=== PATIENT | female | born 1980 | race Caucasian/White ===

== ENCOUNTER 2019-02-04 23:35 | Day surgery (SDC) | payer OTHER ==
[2019-02-05 00:24] VITALS: BP 122/58; TEMP 98.3; BMI 29.7
--- NOTE | 2019-02-05 00:53 | PDOC.FPROB ---
FMR OB H&P: HPI - History of Present Illness Chief Complaint: Decreased movement History of Present Illness: This is a 38 yo at 37.5 by 10.6 wk US c/w LMP who presents to L&D with a cc of decreased movement. She reports earlier today she reports decreased movement. She states she tried eating something sweet to try and stimulate her baby. She denies chest pain, SOB, vomiting, dizziness, or abdominal pain. She reports 4 contractions today, sporadic. She FMR OB H&P: Current - Care : 3 Para: 0 Gestational age: 37.5 Due date: 02/21/19 Dating Criteria: 10wk US c/w LMP - OB Labs Blood type: A RH: positive Antibody Screen: negative HIV: negative RPR: negative HepBsAg: negative Quad screen: negative Gonorrhea: negative Chlamydia: negative Pap Smear: Negative GBS: unknown Additional labs: Hep C positive, Genotype 2 - Additional Ultrasound Additional: 30.0 week US shows BPP 8/8 and anterior placenta. 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 OFFICER History: None - Surgical History Sx History: None - Social History Social History: History of drug use - Family History Family History: Noncontributory FMR OB H&P: Medications - Current Home Medications: Medication Instructions Recorded Confirmed Type Vitamin 1 tablet PO DAILY 02/05/19 02/05/19 History Ranitidine HCl [Acid Substance Abuse Clinician] 75 mg PO BID 02/05/19 02/05/19 History Allergies/Adverse Reactions: Allergies Allergy/AdvReac Type Severity Reaction Status Date / Time No Known Allergies Allergy Unverified 02/05/19 00:11 FMR OB H&P: ROS - Review of Systems General: denies: fever/chills, weight/appetite/sleep changes Eyes: denies: eye pain, vision changes ENT: denies: nasal congestion, rhinorrhea Cardiovascular: denies: chest pain, palpitation Gastrointestinal: denies: abdominal pain, indigestion, bright red blood Genitourinary (Female): reports: other (Possible LOF). denies: incontinence, dysuria, vaginal bleeding, vaginal pressure Musculoskeletal: denies: pain, stiffness Neurologic: denies: numbness, syncope Integumentary: denies: itching, rash Hematologic/Lymphatic: denies: prolonged or excessive bleeding Psychological: denies: depression, anxiety FMR OB H&P: Vital Signs - Maternal Vital signs: Vital Signs - First Documented Temp Pulse Resp BP Pulse Ox 98.3 F 84 18 122/58 L 98 02/05/19 00:09 02/05/19 00:09 02/05/19 00:09 02/05/19 00:09 02/05/19 00:09 - Heart Tones Baseline: 150 (Reactive NST) Variability: moderate Acceleration: present Deceleration: absent [place] contractions every: none FMR OB H&P: Physical Exam - Physical Exam General: NAD, awake, alert and oriented HEENT: normocephalic and atraumatic, PERRLA, EOMI, grossly normal vision, grossly normal hearing Neck: FROM, trachea midline Chest: non-tender to palpation Heart: RRR, normal S1/S2 General: CTAB, no respiratory distress, no wheezing Abdomen: soft, gravid, non-tender, bowel sound present Musculoskeletal: normal gait and station, pulses present Skin: capillary refill <2 seconds Lymphatic: no unusual bruising or bleeding Psychiatric: intact recent and remote memory FMR OB H&P: Results - Labs Lab results: Amnisure negative FMR OB H&P: A/P Disposition: This is a 38 yo at 37.5 by 10.6 wk US c/w LMP tIUP, concern for decreased FM -Resolved upon L&D -FHTs Cat 1 -Amnisure negative for fluid loss -Discharging pt home, return precautions given Hepatitis C -Plan for treatment by ALESSANDRO PABLO Discussion: Date/Time: 02/05/19 0050 This H&P was discussed with Dr. Avila who agree with the above documentation and plan. Signature: Markell Dunaway DO
--- NOTE | 2019-02-05 01:39 | PDOC.EVN ---
Event Note - Event Note Event Note: [facility] 0140 Triage H&P FULL H&P per resident note I have seen and evaluated the patiet at bedside. I have reviewed the case with the resident production specialist. CC: Decreased FM (now resolved) at 37.5 weeks... Patient is a 38 yo Living 0 with HX 27 week delivery and 20 week SAB, here with resolved decreased FM. Unsure if had a leak of fluid eatlier x1...now resolved. No V. Review of Systems: States HX Hep C, and has GI MD follow up Past med: hep C Ob HX: As per HPI Physiacl: VSS afebrile NAD Abd soft nt No gross evidence of LOF no VB CX deferred as no CTX Monitors: strip cat 1, no ctx Lab: Amnisure pending Assessment and plan: 1. Hep C 2. AMS 3. Decreased FM..now resolved, Cat 1 FHT 4. await test (do not suspect LOF by HX or exam at this point)
[2019-02-05 02:03] LABS: Amnisure Internal Control QC ACCEPTABLE (ACCEPTABLE); Amnisure Test No Membranes Rupture (No Rupture)
== END 2019-02-05 02:44 | disposition home or self-care (01) ==
LOC: L&D/OP 23:35
PROVIDERS: ATTEND Obstetrics & Gynecology
DX: O36.8130 Decreased fetal movements, third trimester, not applicable or unspecified (principal); O98.413 Viral hepatitis complicating pregnancy, third trimester; B19.20 Unspecified viral hepatitis C without hepatic coma; Z3A.37 37 weeks gestation of pregnancy; Z79.899 Other long term (current) drug therapy
CPT/HCPCS: 84112; 99283

== ENCOUNTER 2019-02-16 21:00 | Inpatient (IN) | payer OTHER ==
--- NOTE | 2019-02-16 21:20 | PDOC.FPROB ---
FMR OB H&P: HPI - History of Present Illness Chief Complaint: eIOL Indentification: 38 yo @ 39.2 by 10.6 wk sono History of Present Illness: 38 yo @ 39.2 wks by 10.6 wk sono presents for eIOL. Reports +FM, no VB, no abnormal discharge, no LOF. Denies contractions. Primary Care Physician: Kusum Wisdom FMR OB H&P: Current - Care : 3 Para: 0110 Gestational age: 39.2 Due date: 02/21/19 Dating Criteria: 10.6 wk sono - OB Labs Blood type: A RH: positive Antibody Screen: negative HIV: negative RPR: negative HepBsAg: negative Rubella: immune Quad screen: negative Urine drug screen: negative Gonorrhea: negative Chlamydia: negative Pap Smear: NILM, hpv neg 1 hour gtt: 125 GBS: negative H&H: 11.4/32.1, 12.1/34.0 Platelets: 227, 252 - First Trimester Ultrasound First trimester: anterior placenta FMR OB H&P: History - Past Medical History PMH: Hep C, patient will follow up with GI for tx after delivery Hx Meth abuse Depression - OB History OB History: 1st - 28-30 wk IUFD 2nd - 20 wk spontaneous On methamphetamine during both prior pregnancies - 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: +BV, s/p tx - Surgical History Sx History: none - Social History Social History: Hx meth abuse Current smoker, 1-2 cig/day No alcohol use Hx of incarceration - Family History Family History: adopted FMR OB H&P: Medications - Current Home Medications: Medication Instructions Recorded Confirmed Type Vitamin 1 tablet PO DAILY 02/05/19 02/16/19 History Allergies/Adverse Reactions: Allergies Allergy/AdvReac Type Severity Reaction Status Date / Time No Known Allergies Allergy Verified 02/16/19 21:43 FMR OB H&P: ROS - Review of Systems General: denies: fever/chills, weight/appetite/sleep changes Eyes: denies: eye pain, vision changes ENT: reports: nasal congestion, rhinorrhea, sore throat, other (Tooth pain, broken tooth. Plans to follow up after delivery.) Cardiovascular: denies: chest pain, palpitation Gastrointestinal: denies: abdominal pain, indigestion, nausea, vomiting, diarrhea, constipation, bright red blood Genitourinary (Female): reports: vaginal pressure. denies: dysuria, hematuria, vaginal discharge, vaginal pain, vaginal bleeding, contractions Neurologic: denies: numbness, weakness Integumentary: denies: rash, lesions Psychological: denies: depression, anxiety FMR OB H&P: Vital Signs - Maternal Vital signs: 121/69 BP P100 T 98.3 O2 98% on RA - Heart Tones Baseline: 140 Variability: moderate Acceleration: present Deceleration: absent Category: category 1 [place] contractions every: none FMR OB H&P: Physical Exam - Physical Exam General: NAD, awake, alert and oriented HEENT: normocephalic and atraumatic, PERRLA, MMM, conjunctiva clear, grossly normal hearing, oropharynx clear Neck: supple, no LAD Breast: symmetric Heart: RRR, normal S1/S2, other (trace pitting edema BLE) General: CTAB, no respiratory distress Abdomen: soft, gravid Musculoskeletal: pulses present, no misalignment/asymmetry, no atrophy Skin: no rash, good tugor, capillary refill <2 seconds Lymphatic: no unusual bruising or bleeding Psychiatric: intact recent and remote memory, normal mood and affect - Pelvic Exam Vulva: normal hair distribution SVE: /-2 @ 1015 Agarwal score: 9 Membranes: intact Presentation: OP FMR OB H&P: A/P - Problem List (1) Elective induction of labor planned Current Visit: Yes Status: Acute Code(s): [id number] - (2) Current Visit: Yes Status: Acute (3) Tobacco abuse Current Visit: Yes Status: Acute Code(s): Z72.0 - TOBACCO USE (4) Hx of intravenous drug use in remission Current Visit: Yes Status: Chronic Code(s): Z87.898 - PERSONAL HISTORY OF OTHER SPECIFIED CONDITIONS (5) Hepatitis C Current Visit: Yes Status: Acute Code(s): B19.20 - UNSPECIFIED VIRAL HEPATITIS C WITHOUT HEPATIC COMA Discussion: Date/Time: 02/16/192117 sIUP -SVE @ 2215: 380/-2, agarwal 9 -Bedside sono: vertex, OP -FHTs: baseline 140, +accels no decels, no cxns -GBS neg -Pt wants epidural, plans to breast feed -Start induction with cytotec, recheck in 4 hrs Hx drug use -UDS pending Current tobacco use -10 cig/day Hep C -to be treated outpt after delivery Addendum - Attending - Attending Attestation Date/Time: 02/16/19 6907 I personally evaluated the patient and discussed the management with Dr. Ken Wisdom I agree with the History, Examination, Assessment and Plan documented above with any addition or exceptions noted below- 38 yo female @39.2 weeks admitted for elective induction. Denies any ctx, LOF, VB (+) FM. POBHx significant for IUFD @ 20 weeks and 28 weeks. H/o methamphetamine use in past; no recent use. Afebrile VSS. SVE 3/80%/-2/mid/soft (Agarwal=9). FHTs 140s/mod variability/(+) accel/no decel; Category 1. [place]- occ ctx A/P: 1) IUP@39.2 weels for elective induction Cervix favorable- will start pitocin.
[2019-02-16] MEDS ORDERED: NS / Oxytocin 40 units/1000ml 1,000 ML IV PRN (22:48)
[2019-02-16] MEDS ORDERED: Promethazine HCl 25 MG/ML VIAL IM PRN (22:48)
[2019-02-16] MEDS ORDERED: Ibuprofen 800 MG TAB PO PRN ×2 (22:48→23:04)
[2019-02-16] MEDS ORDERED: Ondansetron PF 4 MG/2 ML Vial IVP PRN (22:48)
[2019-02-16] MEDS ORDERED: Lidocaine 1% (PF) 30 ML VIAL SC PRN (22:48)
[2019-02-16] MEDS ORDERED: Butorphanol Tartrate 1 MG/ML VIAL SLOW IVP PRN (22:48)
[2019-02-16] MEDS ORDERED: Acetaminophen 500 MG TAB PO PRN (22:48)
[2019-02-16] MEDS ORDERED: NS w/ Oxytocin 10 units 500 ML IV SCH (22:48)
[2019-02-16 23:00] LABS: Hemoglobin 12.5 g/dL (12.0-16.0); Mean Corpuscular HGB CONC 34.5 g/dL (32.0-36.0); Mean Corpuscular Hemoglobin 33.7 pg (27.0-31.0); Mean Corpuscular Volume 97.8 fL (78.0-98.0); Mean Platelet Volume 9.2 fL (7.4-10.4); Platelet Count 253 thou/uL (130-400); RBC Distribution Width 11.7 % (11.5-14.5); Red Blood Cell (RBC) Count 3.72 mill/uL (4.20-5.40); White Blood Cell (WBC) Count 14.5 thou/uL (4.8-10.8)
[2019-02-16] MEDS: Lactated Ringer's 1,000 ML IV SCH (23:00)
[2019-02-16 23:38] LABS: Syphilis Antibody Nonreactive (Nonreactive); Syphilis Antibody Index 0.03 S/CO (<1.00 Non-Reactive)
[2019-02-17 00:59] LABS: HBSAg Index 0.28 S/CO (0-0.99); Hep B Surf Ag Non-Reactive S/CO (NonReactive)
--- NOTE | 2019-02-17 02:46 | PDOC.EVN ---
Event Note - Event Note Event Note: 38 yo @ 39.3 wks by 10.6 wk octavio presents for eIOL. S: Patient states she cannot feel her contractions very much. O: VSS. FHTs: baseline 140, mod variability, +accels no decels. Cxn q2-3 minutes. Pitocin: at 10 sIUP -SVE @ 2215: 380/-2, agarwal 9, pitocin started -SVE @ 0230: 380/-2, pitocin at 10 -Bedside sono: vertex, OP -FHTs: baseline 140, +accels no decels, cxns q2-3 min -GBS neg -Pt wants epidural, plans to breast feed -Continue pitocin, recheck in 4 hrs Hx drug use -UDS pending Current tobacco use -10 cig/day Hep C -to be treated outpt after delivery
[2019-02-17] MEDS ORDERED: Fentanyl 4 mcg/Bup 0.1% Cadd 100 ML ONE (05:11)
[2019-02-17] MEDS: Lactated Ringer's 1,000 ML IV SCH (06:00)
[2019-02-17] MEDS ORDERED: Lactated Ringer's 500 ML IV PRN (06:06)
[2019-02-17] MEDS ORDERED: Promethazine HCl 25 MG/ML VIAL IM PRN (06:06)
[2019-02-17] MEDS ORDERED: ePHEDrine/0.9% NaCl/PF SYRINGE 50 mg/10 ml SLOW IVP PRN (06:06)
[2019-02-17] MEDS ORDERED: Acetaminophen 325 MG TAB PO PRN (06:06)
[2019-02-17] MEDS ORDERED: diphenhydrAMINE 50 MG/ML VIAL IVP PRN (06:06)
[2019-02-17] MEDS ORDERED: Naloxone HCl 0.4 mg/ml Vial IVP PRN ×2 (06:06)
[2019-02-17] MEDS ORDERED: Ondansetron PF 4 MG/2 ML Vial IVP PRN ×2 (06:06→14:12)
[2019-02-17] MEDS ORDERED: Communication Order-Pharmacy FS SCH (06:15)
[2019-02-17] MEDS ORDERED: Fentanyl 4 mcg/Bupivacaine 0.1% Cassette 100 ML EPIDURAL SCH (06:15)
--- NOTE | 2019-02-17 07:14 | PDOC.LDPN ---
Labor & Delivery Progress Note - Objective Vital signs reviewed and normal: yes General: NAD SVE: /-1 FHT: category 1 [place] contractions every: q3 min - Assessment (1) Elective induction of labor planned Code(s): [id number] - Current Visit: Yes Status: Acute (2) Current Visit: Yes Status: Acute (3) Tobacco abuse Code(s): Z72.0 - TOBACCO USE Current Visit: Yes Status: Acute (4) Hx of intravenous drug use in remission Code(s): Z87.898 - PERSONAL HISTORY OF OTHER SPECIFIED CONDITIONS Current Visit: Yes Status: Chronic (5) Hepatitis C Code(s): B19.20 - UNSPECIFIED VIRAL HEPATITIS C WITHOUT HEPATIC COMA Current Visit: Yes Status: Acute -: 1) IUP@ 39.3 weeks undergoing induction Epidural placed for pain management; progressing well. Category 1 FHTs Continue pitocin 2) Hep C (+) Avoid amniotomy and FSE unless absolutely necessary
[2019-02-17 07:18] LABS: Amphetamine Not Detected (NotDetected); Barbiturates Screen Not Detected (NotDetected); Benzodiazepine Screen Not Detected (NotDetected); Cocaine Metabolite Screen Not Detected (NotDetected); Medtox Control Line Valid? VALID (VALID); Medtox Reader # READER 1; Methadone Not Detected (NotDetected); Methamphetamine Not Detected (NotDetected); Opiate Screen Not Detected (NotDetected); Oxycodone Screen Not Detected (NotDetected); Phencyclidine (PCP) Not Detected (NotDetected); THC/Cannabinoid Screen Not Detected (NotDetected); Tricyclic Screen Not Detected (NotDetected)
--- NOTE | 2019-02-17 13:12 | PDOC.OPDEL ---
OB Operative/Delivery Note - Additional Findings/Plan Compilations/Other Findings: Vaginal Delivery Procedure note Delivering Physician: Dr. Laith Wisdom, Dr. Cammy Belcher Attending: Dr. Velásquez Procedure: Spontaneous Vaginal Delivery Anesthesia: epidural QBL: 328 ml Pre-op Diagnosis: 1. Term intrauterine in labor 2. Hepatitis C 3. AMA 4. Hx of IUFD Post-op Diagnosis: 1. Term intrauterine , delivered 2. same as above Indications: A 40y/o female presented for elective induction Delivery Note: This is 40yo F @ 39.3wks who delivered a viable F infant at 1051 on 02/17/19. Following an uneventful antepartum course, a vigorous female was delivered over an intact perineum in the L occipitoanterior position after spending the majority of the second phase OP. Anterior Shoulder and then remainder of the body delivered. Nuchal cord x1 reduced easily at perinuem. The head was held down and mouth and nares were bulb suctioned. Cord clamped and cut and cord blood collected. Placenta delivered intact Sosa presentation with a 3 vessel cord noted. Fundal massage was performed and the fundus was firm. The cervix and vagina were inspected and found to have vaginal laceration with intact perineum. Laceration noted and repaired with 3-0 vicryl in the usual running-locking fashion with good approximation and hemostasis. Infant went to nursery in good condition for routine care. Apgars were 8/9 at 1 & 5 minutes, respectively. Patient tolerated delivery well and went to after routine recovery/care. Addendum - Attending - Attending Attestation Date/Time: 02/18/19 9233 I was present for and assisted in the entire uncomplicated performed by Sallie Wisdom and Ye.
[2019-02-17] MEDS ORDERED: Adacel (T-DAP) 0.5 ML SYRINGE IM ONE (14:12)
[2019-02-17] MEDS ORDERED: NS / Oxytocin 40 units/1000ml 1,000 ML IV SCH (14:12)
[2019-02-17] MEDS ORDERED: Lanolin Ointment 7 GM TUBE TOP PRN (14:12)
[2019-02-17] MEDS ORDERED: Milk Of Magnesia 30 ML UDCUP PO PRN (14:12)
[2019-02-17] MEDS ORDERED: Preparation H Ointment 28 GM TUBE PR PRN (14:12)
[2019-02-17] MEDS ORDERED: Bisacodyl 10 MG SUPP PR PRN (14:12)
[2019-02-17] MEDS: Ibuprofen 800 MG TAB PO SCH ×2 (15:19→21:56)
[2019-02-17] MEDS: Ferrous Sulfate 325 MG TAB PO SCH (16:05)
[2019-02-17] MEDS: Docusate Calcium (SURFAK) 240 MG CAP PO SCH (21:56)
[2019-02-17] MEDS ORDERED: Bupivacaine/Epinephrine 0.25% 30 ML VIAL ONE (22:03)
[2019-02-18] MEDS: Ibuprofen 800 MG TAB PO SCH ×3 (05:35→21:50)
[2019-02-18 06:37] LABS: Hemoglobin 10.9 g/dL (12.0-16.0); Mean Corpuscular Hemoglobin 33.2 pg (27.0-31.0); Mean Corpuscular Volume 97.7 fL (78.0-98.0); Platelet Count 245 thou/uL (130-400); RBC Distribution Width 11.6 % (11.5-14.5); Red Blood Cell (RBC) Count 3.29 mill/uL (4.20-5.40); White Blood Cell (WBC) Count 13.7 thou/uL (4.8-10.8)
--- NOTE | 2019-02-18 07:31 | PDOC.PP ---
Post Progress Note Post Day #: 1 Subjective: Mild vaginal soreness, ice packs used overnight. Ambulating well, less bleeding than menses. well meets with today. Tolerating PO w/o difficulty. PO intake tolerated: yes Flatus: yes Ambulation: yes Vital Signs (12 hours) Temp Pulse Resp BP Pulse Ox 02/18/19 05:20 98.0 F 80 16 133/73 02/17/19 23:50 97.9 F 89 16 117/67 02/17/19 20:00 98.7 F 79 16 120/67 99 Weight Weight 79.379 kg - Physical Examination General: NAD Cardiovascular: no m/r/g, RRR Respiratory: clear to auscultation bilaterally, non-labored breathing Abdominal: + bowel sounds, lochia, no distention, appropriately TTP Extremities: negative homans (B) Neurological: no gross focal deficits Psychiatric: A&Ox3, normal affect Result Diagrams: 02/18/19 06:03 Additional Labs: Post Labs Blood Type A POSITIVE 02/16/19 23:44 Hep Bs Antigen Non-Reactive S/CO (NonReactive) 02/16/19 22:50 (1) Vaginal delivery Code(s): O80 - ENCOUNTER FOR FULL-TERM UNCOMPLICATED DELIVERY Status: Acute (2) Hepatitis C Code(s): B19.20 - UNSPECIFIED VIRAL HEPATITIS C WITHOUT HEPATIC COMA Status: Acute (3) Tobacco abuse Code(s): Z72.0 - TOBACCO USE Status: Acute - Assessment/Plan 38 delivered by at 39.3 wks # PP day 1 - hgb 10.9, asx - , consult ordered, rec'd avoiding with cracked nipples otherwise ok - tolerating PO, ambulation - pain well controlled # Tobacco abuse - continued to rec'd cessation, aries with Dispo: will stay one more night as this is first child Addendum - Attending - Attending Attestation Date/Time: 02/18/19 7758 I personally evaluated the patient and discussed the management with Dr. Wisdom I agree with the History, Examination, Assessment and Plan documented above with any addition or exceptions noted below. Meeting appropriate milestones. Likely d/c to home tomorrow.
[2019-02-18] MEDS: Ferrous Sulfate 325 MG TAB PO SCH ×2 (07:35→12:59)
[2019-02-18] MEDS: Docusate Calcium (SURFAK) 240 MG CAP PO SCH ×2 (09:35→21:50)
[2019-02-19] MEDS: Docusate Calcium (SURFAK) 240 MG CAP PO SCH ×2 (02:00→09:11)
[2019-02-19] MEDS: Ibuprofen 800 MG TAB PO SCH ×2 (06:17→14:13)
--- NOTE | 2019-02-19 07:25 | PDOC.PP ---
Post Progress Note Post Day #: 2 Subjective: Patient feels well today. She states she has less bleeding than a period. Pain is well-controlled. Patient complains of dental abscess. Mild pain, tolerating PO. NO fever. PO intake tolerated: yes Flatus: yes Ambulation: yes Vital Signs (12 hours) Temp Pulse Resp BP Pulse Ox 02/19/19 04:55 98.0 F 68 18 101/56 L 02/19/19 00:00 98.1 F 70 18 110/55 L 02/18/19 21:00 97.8 F 69 20 121/68 98 Weight Weight 79.379 kg - Physical Examination General: NAD Cardiovascular: no m/r/g, RRR Respiratory: clear to auscultation bilaterally, non-labored breathing Abdominal: + bowel sounds, lochia, appropriately TTP Extremities: negative homans (B) Neurological: no gross focal deficits Psychiatric: A&Ox3, normal affect Deviation from normal: Dental abscess on lower incisor Result Diagrams: 02/18/19 06:03 Additional Labs: Post Labs Blood Type A POSITIVE 02/16/19 23:44 Hep Bs Antigen Non-Reactive S/CO (NonReactive) 02/16/19 22:50 (1) Vaginal delivery Code(s): O80 - ENCOUNTER FOR FULL-TERM UNCOMPLICATED DELIVERY Status: Acute (2) Hepatitis C Code(s): B19.20 - UNSPECIFIED VIRAL HEPATITIS C WITHOUT HEPATIC COMA Status: Acute (3) Tobacco abuse Code(s): Z72.0 - TOBACCO USE Status: Acute - Assessment/Plan 38 delivered by at 39.3 wks # PP day 2 - hgb 10.9, asx - , has visited, avoid with cracked nipples - tolerating PO, ambulation - pain well controlled # Tobacco abuse - continued to rec'd cessation, aries with # Hepatitis C - f/u with GI for treatment # Dental Abscess - Augmentin, f/u with dentist Dispo: d/c today Addendum - Attending - Attending Attestation Date/Time: 02/19/19 7176 I personally evaluated the patient and discussed the management with Dr. Wisdom I agree with the History, Examination, Assessment and Plan documented above with any addition or exceptions noted below. Stable PPD #2. Ok to discharge today
[2019-02-19 08:10] VITALS: BP 110/65; TEMP 97.8
[2019-02-19] MEDS: Ferrous Sulfate 325 MG TAB PO SCH (09:11)
== END 2019-02-19 16:10 | disposition home or self-care (01) | DRG 806 ==
LOC: L&D 21:11 → 3SW 02-17 13:59
PROVIDERS: ADMIT Family Medicine; ATTEND Family Medicine
PROC: 10E0XZZ Delivery of Products of Conception, External Approach (ICD-10-PCS; principal; 2019-02-17)
PROC: 0UQGXZZ Repair Vagina, External Approach (ICD-10-PCS; 2019-02-17)
DX: O98.42 Viral hepatitis complicating childbirth (principal); B17.10 Acute hepatitis C without hepatic coma; Z37.0 Single live birth; O71.4 Obstetric high vaginal laceration alone; O99.334 Smoking (tobacco) complicating childbirth; F17.210 Nicotine dependence, cigarettes, uncomplicated; O69.81X0 Labor and delivery complicated by cord around neck, without compression, not applicable or unspecified; Z3A.39 39 weeks gestation of pregnancy; K04.7 Periapical abscess without sinus; O99.62 Diseases of the digestive system complicating childbirth; Z87.898 Personal history of other specified conditions
CPT/HCPCS: 36415; 51702; 80306; 85027; 86780; 86850; 86900; 86901; 87340; 90471; 90732; G0009; J2590